=== PATIENT | female | born 1970 | race Caucasian/White ===

== ENCOUNTER 2020-02-24 23:07 | Inpatient (IN) | payer BC ==
[~2020-02-24] VITALS: Ht 170.2 cm; Wt 77.0 kg
[~2020-02-24 23:07] MED LIST: AMIT100T PO; ATOR20TA58 PO; BEVA25VI IV; CANA100T PO; EXEN2VIA SQ; INSU100I13 SQ; LISI10TA2 PO; SIMV20TA18 PO; SITA1TAB11 PO; ZOLP5TAB PO
--- NOTE | 2020-02-24 23:20 | PHYS DOC ---
Past History Past Medical History: Anemia, Anxiety, Diabetes, Hypertension, Renal Disease, Renal Failure, Other Past Medical History C dif colitis Past Surgical History: Tonsillectomy, Other Smoking: Non-smoker Alcohol Use: None Drug Use: None General Adult HPI: HPI: ".. I lost my taste and smell.. and I ve had constant nausea, diarrhea.. and some vomiting... I ve been sick since last tu... the diarrhea does not stop....".. I did get tested for COVID.. but will not have test until tomorrow..." Patient is a 49 year old female who presents with above hx and complaints na usea,vomiting, diarrhea, myalgia, arthralgia, fever, chills, malaise, loss of smell and taste. Patient today developed increased dyspnea. Pt. follows with Dr. Neville. Patient is also followed with Dr. Pappas in past. Patient also follows at nephrology for her chronic renal failure secondary to her diabetes.. Patient has had previous C. difficile exacerbations. Patient has diabetes has been fairly controlled. Pt. denies any history of intake of bad food. No specific ill contacts. No recent travel. Patient did get a flu vaccination this season. Review of Systems: Review of Systems: Constitutional: History fever or chills Eyes: Denies change in visual acuity HENT: Complaints of loss of smell and taste. Respiratory: Complains of shortness of breath Cardiovascular: Denies chest pain or edema GI: Complains of nausea, vomiting, and diarrhea : Denies dysuria Musculoskeletal: Denies back pain or joint pain Integument: Denies rash Neurologic: Denies headache, focal weakness or sensory changes Endocrine: Denies polyuria or polydipsia Lymphatic: Denies swollen glands Psychiatric: Denies depression or anxiety Family History: Family History: Noncontributory to presentation Current Medications: Current Meds: See nursing for home meds Allergies: Allergies: Allergies Coded Allergies Type Severity Reaction Last Updated Verified No Known Drug Allergies 07/01/13 No Physical Exam: PE: Constitutional: Moderate acute distress, non-toxic appearance. [] HENT: Normocephalic, atraumatic, bilateral external ears normal, oropharynx dry, no oral exudates, nose normal. [] Eyes: PERRLA, EOMI, conjunctiva normal, no discharge. [] Neck: Normal range of motion, no tenderness, supple, no stridor. [] Cardiovascular: Tachycardia heart rate regular rhythm, no murmur [] Lungs & Thorax: Bilateral breath sounds equal apex with scattered wheezes on auscultation [] Abdomen: Bowel sounds hyperactive, soft, generalized tenderness, no masses, no pulsatile masses. [] Skin: Warm, dry, no erythema, no rash. [] Back: No tenderness, no CVA tenderness. [] Extremities: Generalize muscle and joint tenderness, no cyanosis, no clubbing, ROM intact, no edema. No cording Neurologic: Alert and oriented X 3, normal motor function, normal sensory function, no focal deficits noted. [] Psychologic: Affect anxious, judgement normal, mood normal. [] EKG: EKG: My interpretation EKG shows a sinus rhythm at 89 bpm. Does have findings of a left port axis. There is some nonspecific anterior septal changes. But no findings of acute STEMI of contralateral changes. [] Radiology/Procedures: Radiology/Procedures: [] Heart Score: HEART Score for Chest Pain: HEART Score for Chest Pain Response (Comments) Value History Moderately Suspicious 1 ECG Nonspecific Repolarizatio 1 Age >45 - < 65 1 Risk Factors 1 or 2 Risk Factors 1 Total 4 Risk Factors: Risk Factors: DM, Current or recent (<one month) smoker, HTN, HLP, family history of CAD, obesity. Risk Scores: Score 0 - 3: 2.5% MACE over next 6 weeks - Discharge Home Score 4 - 6: 20.3% MACE over next 6 weeks - Admit for Clinical Observation Score 7 - 10: 72.7% MACE over next 6 weeks - Early Invasive Strategies Course & Med Decision Making: Course & Med Decision Making Pertinent Labs and Imaging studies reviewed. (See chart for details) Discussed presentation, testing and treatment plan with . Plan admit and hydrate pt. COVID precautions. Critical Care -90 min. Impression; 1. Viral syndrome-Covid suspect 2. Respiratory failure-hypoxia 3. Nausea vomiting and diarrhea-acute gastroenteritis 4. Anemia hemoglobin 10.5 5. Diabetes glucose 207 6. Dehydration 7. Elevated D-dimer 1.26 8. Hypomagnesium 1.7 9. Malnutrition albumin 2.7 10. Past history of C. difficile [] Dragon Disclaimer: Anne Disclaimer: This electronic medical record was generated, in whole or in part, using a voice recognition dictation system. Departure Departure: Referrals: CARA NEVILLE MD (PCP) SERG JOHNSON MD Feb 24, 2020 23:20
[2020-02-24] MEDS ORDERED: MORPHINE SULFATE 4 MG/ML DISP.SYRIN. IV ONE (23:55)
[2020-02-24] MEDS ORDERED: IV NORMAL SALINE 1,000ML 1,000 ML IV SCH (23:55)
[2020-02-24] MEDS ORDERED: ONDANSETRON PF 4 MG/2 ML VIAL. IVP ONE (23:55)
[2020-02-25] MEDS ORDERED: diphenhydrAMINE 50 MG/ML VIAL IVP PRN (01:00)
[2020-02-25] MEDS ORDERED: ONDANSETRON PF 4 MG/2 ML VIAL. IVP PRN (01:00)
[2020-02-25 01:18] LABS: BASO % 0 % (0-3); EOS % 0 % (0-3); HEMOGLOBIN 10.5 g/dL (12.0-15.5); LYMPH # 0.9 x10^3/uL (1.0-4.8); LYMPH % 15 % (24-48); MEAN CORPUSCULAR HEMOGLOBIN 28 pg (25-35); MEAN CORPUSCULAR HGB CONC 32 g/dL (31-37); MEAN CORPUSCULAR VOLUME 89 fL (79-100); MONO # 0.4 x10^3/uL (0.0-1.1); MONO % 7 % (0-9); NEUT # 4.8 x10^3uL (1.8-7.7); NEUT % 78 % (31-73); PLATELET COUNT 245 x10^3/uL (140-400); RED BLOOD COUNT 3.71 x10^6/uL (3.50-5.40); RED CELL DISTRIBUTION WIDTH 13.5 % (11.5-14.5); WHITE BLOOD COUNT 6.2 x10^3/uL (4.0-11.0)
[2020-02-25 01:31] LABS: CALCIUM 8.2 mg/dL (8.5-10.1); CREATININE 1.3 mg/dL (0.6-1.0); GFR 43.5; POTASSIUM 4.2 mmol/L (3.5-5.1)
[2020-02-25 01:43] LABS: ALBUMIN 2.7 g/dL (3.4-5.0); C REACTIVE PROTEIN 12.7 mg/L (0-3.3); DIRECT BILIRUBIN 0.2 mg/dL (0.0-0.2); MAGNESIUM 1.7 mg/dL (1.8-2.4); TOTAL BILIRUBIN 0.4 mg/dL (0.2-1.0); TOTAL PROTEIN 6.7 g/dL (6.4-8.2)
--- NOTE | 2020-02-25 01:46 | RAD ---
ACUTE ABDOMEN SERIES INDICATION: Reason: SUSPECT COVID, N/V/D, DYSPNEA / Spl. Instructions: / History: . COMPARISON STUDY: None. FINDINGS: Lungs: Normal lung volume. No pulmonary mass or consolidation. The tracheobronchial tree and hilar structures are normal. Pleura: No pleural effusion or pneumothorax. Heart and Mediastinum: The cardiomediastinal silhouette is normal. The great vessels of the thorax are normal. Abdomen: Nonobstructive bowel gas pattern. No free air. Atherosclerotic vascular calcifications. IMPRESSION: 1. No consolidation. 2. Nonobstructive bowel gas pattern. Electronically signed by: Sanjay Rockwell MD (02/25/2020 1:43 AM) [facility]
[2020-02-25] MEDS: metroNIDAZOLE 500 MG TABLET PO SCH ×3 (02:15→12:59)
[2020-02-25] MEDS ORDERED: MAGNESIUM SULFATE 2GM 50 ML IV ONE (03:15)
[2020-02-25 03:39] VITALS: BP 127/58
--- NOTE | 2020-02-25 04:00 | NUR ---
The patient, VIDAL DELGADO, 49 y/o, F admitted by CARA SYED MD, was given written information regarding hospital policies, unit procedures and contact persons. Valuables were checked and left in pt room
[2020-02-25 04:56] LABS: BGAS PH 7.28 (7.35-7.45)
[2020-02-25 05:15] VITALS: BP 132/63
[2020-02-25] MEDS ORDERED: TRAZ-125 PO (07:32)
[2020-02-25] MEDS ORDERED: LIRA0.6P2 SQ (07:32)
[2020-02-25] MEDS ORDERED: LISI40TA PO (07:32)
[2020-02-25] MEDS ORDERED: GLYB1.252 PO (07:32)
[2020-02-25] MEDS ORDERED: ROPI5TAB PO (07:32)
[2020-02-25] MEDS ORDERED: ESZO3TAB28 PO (07:32)
[2020-02-25] MEDS ORDERED: METF10007 PO (07:32)
[2020-02-25] MEDS: ALBUTEROL SULFATE 8GM INHALER. INH SCH ×4 (09:00→20:25)
[2020-02-25] MEDS ORDERED: CEPHALEXIN 250 MG CAPSULE PO SCH (09:00)
--- NOTE | 2020-02-25 09:28 | EKG ---
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
[2020-02-25] MEDS ORDERED: NON FORMULARY ITEM (Liraglutide (Victoza 3-Pak) 1.8 MG) SQ PRN (09:45)
[2020-02-25] MEDS: FAMOTIDINE 20 MG/2 ML VIAL IVP SCH ×2 (09:50→20:24)
[2020-02-25] MEDS: APIXABAN 2.5 MG TABLET PO SCH ×2 (09:50→20:24)
[2020-02-25] MEDS: LISINOPRIL 20 MG TABLET PO SCH (09:52)
[2020-02-25 10:43] LABS: BARBITURATES NEG (NEG); BENZODIAZEPINES NEG (NEG); CANNABINOIDS NEG (NEG); COCAINE NEG (NEG); METHADONE NEG (NEG); OPIATES POS (NEG); PHENCYCLIDINE NEG (NEG)
[2020-02-25 10:44] LABS: AMPHETAMINE/METHAMPHETAMINE NEG (NEG)
[2020-02-25 10:50] VITALS: BP 129/60
[2020-02-25 10:50] LABS: BILIRUBIN,URINE NEG (NEG); CLARITY,URINE HAZY; COLOR,URINE YELLOW; GLUCOSE,URINE 500 mg/dL (NEG)
[2020-02-25 10:51] LABS: AMORPHOUS SEDIMENT,UR PRESENT /HPF; BACTERIA,URINE FEW /HPF (0-FEW); HYALINE CASTS, URINE MOD /HPF; NITRITE,URINE NEG (NEG); SQUAMOUS EPITHELIAL CELL,UR OCC /LPF; UROBILINOGEN,URINE 0.2 mg/dL (0.2 mg/dL)
[2020-02-25 10:52] LABS: GRANULAR CASTS,URINE FEW /HPF
[2020-02-25] MEDS: glyBURIDE 1.25 MG TABLET PO SCH (12:19)
[2020-02-25] MEDS: IV RINGERS SOLUTION,LACTATED 1,000 ML IV SCH ×2 (12:21→20:00)
[2020-02-25] MEDS: ACETAMINOPHEN 325 MG TABLET PO PRN ×2 (12:59→21:36)
[2020-02-25 14:38] VITALS: BP 132/63
[2020-02-25 14:53] LABS: CALCIUM 7.2 mg/dL (8.5-10.1); GFR 58.9; POTASSIUM 3.9 mmol/L (3.5-5.1)
[2020-02-25] MEDS ORDERED: IOHEXOL 350 MG/ML 100 ML VIAL. IV ONE (15:00)
[2020-02-25] MEDS ORDERED: CONTRAST GIVEN. MC PRN (15:15)
[2020-02-25] MEDS: VANCOMYCIN 125 MG/2.5 ML ORAL SOLUTION. PO SCH ×3 (15:30→20:24)
--- NOTE | 2020-02-25 16:53 | RAD ---
CTA scan of the Chest with Contrast (Pulmonary Embolism protocol) 02/25/2020 Clinical History: Shortness of breath. Positive d-dimer. Technique: After the intravenous administration of 100 cc of Omnipaque 300, contiguous, 0.625 mm axial sections were obtained through the chest. 2 mm axial and 3D MIP coronal and sagittal reconstructed images were obtained. One or more of the following individualized dose reduction techniques were utilized for this study: 1. Automated exposure control. 2. Adjustment of the mA and/or kV according to patient size. 3. Use of iterative reconstruction technique. Findings: Comparison study is dated 05/02/2015. No filling defect is seen within the major branches of either pulmonary artery. There is no CT evidence of pulmonary embolism. The heart is mildly enlarged. The thoracic aorta tapers normally. Patchy focal infiltrates are seen involving both upper lobes, left greater than right along with both lower lobes. No pneumothorax or pleural effusion is seen. Impression: There is no CT evidence of pulmonary embolism. CT scan of the abdomen and pelvis with contrast 02/25/2020 CLINICAL HISTORY: Abdominal pain. Weakness. TECHNIQUE: After the intravenous administration of 100 cc of Omnipaque 300, contiguous, 5 mm axial sections were obtained through the abdomen and pelvis. One or more of the following individualized dose reduction techniques were utilized for this study: 1. Automated exposure control. 2. Adjustment of the mA and/or kV according to patient size. 3. Use of iterative reconstruction technique. FINDINGS: Images through the lung bases demonstrate patchy areas of infiltrate involving both lower lobes. There is mild cardiomegaly. The liver, spleen, pancreas, and adrenal glands are within normal limits. 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 The inferior aspect of the right kidney extends into the right pelvis. A 5 mm rounded low-attenuation lesion is seen involving the midpole of the left kidney. This likely represents a cyst. No further imaging evaluation is seen. Nonobstructing calculi are seen involving both kidneys which measure 1 to 2 mm in size. Atherosclerotic calcification of the abdominal aorta is seen. The abdominal aorta tapers normally. No free fluid or free air is seen within the abdomen. The gallbladder is well-distended. There is no evidence of bowel obstruction. Images through the pelvis demonstrate the urinary bladder distended with urine. Calcifications are seen within the pelvis consistent with phleboliths. No free fluid is seen. Minimal S-shaped curvature of the thoracolumbar spine is seen. Degenerative changes are seen involving the lower thoracic and throughout the lumbar spine along with both hips. IMPRESSION: No acute abnormality is seen. Electronically signed by: Jaylen Stinson MD (02/25/2020 4:49 PM) [id number]
[2020-02-25] MEDS ORDERED: METFORMIN HCL 2000 MG PO SCH (17:00)
[2020-02-25] MEDS ORDERED: ZOLPIDEM 5 MG TABLET. PO PRN ×2 (18:30→18:45)
[2020-02-25] MEDS ORDERED: AZITHROMYCIN 250 MG TABLET. PO ONE (18:30)
[2020-02-25] MEDS ORDERED: MORPHINE SULFATE 2 MG/ML DISP.SYRIN. IM ONE (18:45)
[2020-02-25] MEDS ORDERED: ONDANSETRON ODT 4 MG TAB.RAPDIS PO ONE (18:45)
[2020-02-25] MEDS: MORPHINE SULFATE 2 MG/ML DISP.SYRIN. IV PRN (19:45)
[2020-02-25 20:13] VITALS: BP 131/60
[2020-02-25] MEDS: traZODone 100 MG TABLET. PO SCH (20:24)
--- NOTE | 2020-02-25 21:54 | HP ---
ADMIT DATE: 02/25/2020 HISTORY OF PRESENT ILLNESS: A 49-year-old female came in through the Emergency Room. The patient was having problems with diarrhea as well as nausea and vomiting. The diarrhea did not stop at that time. The patient is having multiple complaints of nausea, vomiting, diarrhea, myalgias, arthralgias, fever, chills, malaise, loss of smell and taste. The patient developed increased dyspnea. The patient also has a history of diabetes. Her C. difficile did come back positive. Her COVID-19 is still pending. The patient is spiking temperatures. CT scan demonstrated possible infiltrative process in both the upper lobes of her lungs. Apparently, the patient in the past has had previous C. difficile exacerbations. The patient with multiplicity of medical problems here was admitted to the hospital for further evaluation and treatment, IV fluids, IV antibiotics as well as oral vancomycin for the C. difficile. PAST MEDICAL HISTORY: Includes previous history of C. difficile, tonsillectomy, GERD, hysterectomy, renal disease, endocrine disorders, type 2 diabetes, depression, anemia, pneumococcal vaccination up-to-date. SURGERIES: Lymph node removal, right foot surgery, C. difficile, apparently a few times. FAMILY HISTORY: Positive for diabetes, heart disease, stroke and some form of cancer. ALLERGIES: None known. HOME MEDICATIONS: Reconciled including lisinopril 40, trazodone 100, Lunesta 3, Requip 5, metformin 1000 b.i.d., Victoza 0.6 mg, glyburide 1.25. SOCIAL HISTORY: The patient denies any smoking, alcohol or drug use. Full code. REVIEW OF SYSTEMS: As stated above, some dyspnea. No headaches, visual changes, blurred vision, nausea, vomiting, diarrhea, diffuse abdominal discomfort. PHYSICAL EXAMINATION: GENERAL: The patient on exam is a pleasant white female looking somewhat pale. VITAL SIGNS: Blood pressure at that time 127/54, respiratory rate 18, pulse 106, afebrile at the time, she is on 2 liters at 95%. HEENT: The patient's head is atraumatic, normocephalic. Eyes: PERRLA without jaundice. The mouth and throat were normal. NECK: Supple, without JVD, carotid bruits, no thyromegaly. LUNGS: The patient's lungs were diminished, but basically clear. CARDIOVASCULAR: Regular sinus rhythm. ABDOMEN: Soft, diffuse tenderness in the right mid quadrant area, but no rebounding or guarding. Positive bowel sounds, no hepatosplenomegaly. EXTREMITIES: No clubbing, cyanosis, nor edema. NEUROLOGIC: The patient is alert and oriented x 3. LABORATORY DATA: The patient's white count 6, hemoglobin 10 and hematocrit 33. The patient's chemistry, 134, 3.9. Her BUN and creatinine have come down from 19 and 1.3, to 17 and 1 with a GFR of approximately 59, blood sugar 176. Calcium was low, but that may be pseudo hypocalcemia as her albumin was low at 2.7. C-reactive protein 12.7. BNP 760. Serology positive for C. diff. IMPRESSION: Sepsis, dyspnea, pneumonia of unspecified etiology, possible COVID, type 2 diabetes, Clostridium difficile colitis, recurrent, chronic kidney disease stage 3, respiratory acidosis. The patient will be placed on Rocephin and azithromycin for her pneumonia. Oral vancomycin for her C. difficile, will need to be balanced against the situation here, apparently she was given Septra-DS for bladder infection. She reports that from , her urine grew out Klebsiella pneumoniae for her UTI; however, sensitivities are still pending. PLAN: The patient will be monitored carefully, fluids, oxygen therapy with azithromycin. We will wait for C. difficile before adding any steroids with her history of diabetes. CARA SYED MD DR: EMI/jonah JOB#: [id number] / [id number]
[2020-02-25 22:40] VITALS: BP 120/60
[2020-02-26 06:27] LABS: BASO % 0 % (0-3); EOS # 0.1 x10^3/uL (0.0-0.7); EOS % 1 % (0-3); HEMATOCRIT 26.2 % (36.0-47.0); HEMOGLOBIN 8.4 g/dL (12.0-15.5); LYMPH # 1.1 x10^3/uL (1.0-4.8); LYMPH % 19 % (24-48); MEAN CORPUSCULAR HEMOGLOBIN 28 pg (25-35); MEAN CORPUSCULAR HGB CONC 32 g/dL (31-37); MEAN CORPUSCULAR VOLUME 89 fL (79-100); MONO # 0.6 x10^3/uL (0.0-1.1); MONO % 9 % (0-9); NEUT # 4.2 x10^3uL (1.8-7.7); NEUT % 71 % (31-73); PLATELET COUNT 221 x10^3/uL (140-400); RED BLOOD COUNT 2.95 x10^6/uL (3.50-5.40); RED CELL DISTRIBUTION WIDTH 13.3 % (11.5-14.5); WHITE BLOOD COUNT 5.9 x10^3/uL (4.0-11.0)
[2020-02-26 06:32] LABS: CALCIUM 7.3 mg/dL (8.5-10.1); CREATININE 1.1 mg/dL (0.6-1.0); GFR 52.8
[2020-02-26 06:40] VITALS: BP 135/62
[2020-02-26] MEDS: ONDANSETRON ODT 4 MG TAB.RAPDIS PO PRN (06:47)
[2020-02-26] MEDS: ACETAMINOPHEN 325 MG TABLET PO PRN ×2 (06:47→20:30)
[2020-02-26] MEDS: IV RINGERS SOLUTION,LACTATED 1,000 ML IV SCH ×2 (07:42→18:12)
[2020-02-26] MEDS: APIXABAN 2.5 MG TABLET PO SCH ×2 (07:44→20:30)
[2020-02-26] MEDS: LISINOPRIL 20 MG TABLET PO SCH (07:44)
[2020-02-26] MEDS: VANCOMYCIN 125 MG/2.5 ML ORAL SOLUTION. PO SCH ×4 (07:44→20:30)
[2020-02-26] MEDS: ALBUTEROL SULFATE 8GM INHALER. INH SCH ×4 (07:45→20:30)
[2020-02-26] MEDS: FAMOTIDINE 20 MG/2 ML VIAL IVP SCH ×2 (07:45→20:30)
[2020-02-26] MEDS: AZITHROMYCIN 250 MG TABLET. PO SCH (07:48)
[2020-02-26] MEDS: rOPINIRole 2 MG TABLET. PO SCH (07:49)
[2020-02-26] MEDS: MORPHINE SULFATE 2 MG/ML DISP.SYRIN. IV PRN (08:17)
[2020-02-26] MEDS ORDERED: LACTOBACILLUS RHAMNOSUS GG 1 CAPSULE. PO SCH (09:00)
[2020-02-26] MEDS ORDERED: PROCHLORPERAZINE 10 MG/2 ML VIAL. IM ONE (10:00)
[2020-02-26] MEDS: HYDROcodone/CHLORPHEN POLIS 5 ML SUS.ER.12H PO ONE ×2 (10:22→12:42)
[2020-02-26] MEDS ORDERED: PROCHLORPERAZINE 10 MG/2 ML VIAL. IV ONE (10:30)
--- NOTE | 2020-02-26 10:30 | NUR ---
Patient is nauseous and vomiting, requests that I hold oral medications until she has stopped vomiting. Will hold medications at this time.
[2020-02-26 11:05] VITALS: BP 132/63
[2020-02-26] MEDS: glyBURIDE 1.25 MG TABLET PO SCH (12:42)
--- NOTE | 2020-02-26 15:07 | NUR ---
Patient SpO2 is 86% on room air. patient placed on 3L O2 via nasal canula, SpO2 is 93%. Per MD instructions, pharmacy notified to initiate Remdesivir treatment. Pharmacy states that approval is needed from Dr. Jane. Will continue to monitor.
[2020-02-26 15:20] VITALS: BP 130/62
[2020-02-26] MEDS ORDERED: REMDESIVIR LOAD in IV NORMAL SALINE 250ML TV IV ONE (16:30)
[2020-02-26] MEDS: DEXAMETHASONE SOD PHOS 4 MG/ML VIAL. IVP SCH (18:12)
[2020-02-26] MEDS: ZOLPIDEM 5 MG TABLET. PO PRN (20:30)
[2020-02-26] MEDS: traZODone 100 MG TABLET. PO SCH (20:30)
[2020-02-26] MEDS: CHOLECALCIFEROL (VITAMIN D3) 1,000 UNIT TABLET PO SCH (20:30)
[2020-02-26] MEDS: LACTOBACILLUS RHAMNOSUS GG 1 CAPSULE. PO SCH (20:30)
[2020-02-26 20:56] VITALS: BP 178/75
[2020-02-26] MEDS ORDERED: hydrALAZINE 20 MG/ML VIAL. IV PRN (21:30)
[2020-02-27] MEDS: DEXAMETHASONE SOD PHOS 4 MG/ML VIAL. IVP SCH ×6 (00:15→23:35)
[2020-02-27] MEDS: IV RINGERS SOLUTION,LACTATED 1,000 ML IV SCH ×3 (02:00→23:37)
[2020-02-27 05:38] LABS: BASO % 0 % (0-3); EOS % 0 % (0-3); HEMATOCRIT 31.8 % (36.0-47.0); LYMPH # 0.5 x10^3/uL (1.0-4.8); LYMPH % 13 % (24-48); MEAN CORPUSCULAR HEMOGLOBIN 28 pg (25-35); MEAN CORPUSCULAR HGB CONC 31 g/dL (31-37); MEAN CORPUSCULAR VOLUME 89 fL (79-100); MONO # 0.1 x10^3/uL (0.0-1.1); MONO % 3 % (0-9); NEUT # 3.4 x10^3uL (1.8-7.7); NEUT % 84 % (31-73); PLATELET COUNT 286 x10^3/uL (140-400); RED BLOOD COUNT 3.56 x10^6/uL (3.50-5.40); RED CELL DISTRIBUTION WIDTH 13.4 % (11.5-14.5); WHITE BLOOD COUNT 4.1 x10^3/uL (4.0-11.0)
[2020-02-27 05:44] LABS: CLARITY,URINE CLEAR; COLOR,URINE YELLOW
[2020-02-27 05:45] LABS: BACTERIA,URINE 0 /HPF (0-FEW); BILIRUBIN,URINE NEG (NEG); GLUCOSE,URINE >=1000 mg/dL (NEG); NITRITE,URINE NEG (NEG); RBC,URINE OCC /HPF (0-2); SQUAMOUS EPITHELIAL CELL,UR MOD /LPF; UROBILINOGEN,URINE 0.2 mg/dL (0.2 mg/dL); WBC,URINE OCC /HPF (0-4)
[2020-02-27 05:48] LABS: CALCIUM 7.8 mg/dL (8.5-10.1); CREATININE 1.1 mg/dL (0.6-1.0); GFR 52.8; POTASSIUM 4.4 mmol/L (3.5-5.1)
--- NOTE | 2020-02-27 06:12 | NUR ---
Pt. sitting up at beside when approached for assessment. VS obtained. Pt was stating at 99% on 3L. O2 was then pumped down to 2L. HS meds tolerated w/o difficulty. Pt was educated on how to administer inhaler to self. Pt complied w/ education and demonstrated an understanding. Pt was then visited later in the night to checking toleration of decrease in O2. Pt was stating at 98% on 2L w/o difficulty. Pt stated that "she didn't feel she needed the oxygen." Pt was then taken off O2. After sitting w/ the pt for 30 min. pt was stating above 95% w/o symptoms. Pt was told to call for help if she felt SOA. Call light in reach and will continue to monitor.
[2020-02-27 06:18] VITALS: BP 195/74
[2020-02-27] MEDS: ALBUTEROL SULFATE 8GM INHALER. INH SCH ×4 (10:10→20:26)
[2020-02-27] MEDS: CHOLECALCIFEROL (VITAMIN D3) 1,000 UNIT TABLET PO SCH (10:10)
[2020-02-27] MEDS: FAMOTIDINE 20 MG/2 ML VIAL IVP SCH ×2 (10:11→20:24)
[2020-02-27] MEDS: LACTOBACILLUS RHAMNOSUS GG 1 CAPSULE. PO SCH ×2 (10:11→20:25)
[2020-02-27] MEDS: AZITHROMYCIN 250 MG TABLET. PO SCH (10:11)
[2020-02-27] MEDS: APIXABAN 2.5 MG TABLET PO SCH ×2 (10:11→20:25)
[2020-02-27] MEDS: rOPINIRole 2 MG TABLET. PO SCH (10:11)
[2020-02-27] MEDS: LISINOPRIL 20 MG TABLET PO SCH (10:13)
[2020-02-27] MEDS: VANCOMYCIN 125 MG/2.5 ML ORAL SOLUTION. PO SCH ×4 (10:14→20:24)
[2020-02-27 10:33] VITALS: BP 180/74
[2020-02-27] MEDS: glyBURIDE 1.25 MG TABLET PO SCH (11:53)
[2020-02-27] MEDS: PROCHLORPERAZINE 10 MG/2 ML VIAL. IV PRN (12:09)
[2020-02-27] MEDS ORDERED: DEXTROSE 50% 25 GM / 50ML DISP.SYRIN. IV PRN (12:15)
[2020-02-27] MEDS: DICYCLOMINE HCL 10 MG CAPSULE PO SCH ×2 (13:51→20:25)
[2020-02-27 14:38] VITALS: BP 144/64
[2020-02-27] MEDS: INSULIN LISPRO 300 UNITS/3 ML VIAL. SQ SCH (16:43)
[2020-02-27] MEDS: REMDESIVIR 100mg in NORMAL SALINE 250ML X 4 DAYS IV SCH (17:38)
--- NOTE | 2020-02-27 18:57 | PN ---
DATE: SUBJECTIVE: A 49-year-old female came in with viral syndrome, multiple medical problems including respiratory distress. She also had a Klebsiella pneumoniae urinary tract infection. The patient had C. difficile colitis as well. Multiple medical issues are going on with this individual. The patient's COVID-19 test came back positive today. She was started on a protocol of Decadron, azithromycin as well as continuing her oral vancomycin for the C. difficile. A repeat urine will be performed. She had been on Rocephin and received a couple of doses, which may have been enough to clean out the UTI, at the same time, hopefully allow her bowel to re-populate normal lucie to cut down on the diarrhea. The patient otherwise has got an up and down day. Her temperature has been spiking, although this evening came down from a high of a 103 and is now down to 98 even. OBJECTIVE: VITAL SIGNS: Blood pressure elevated at 170/75 (when seen), respiratory 18, pulse 73. She is on 3 liters. Without it, she desaturated to about 86%. GENERAL: The patient otherwise is alert and oriented. LUNGS: Diminished. Poor movement of air, particularly in the bases. CVR: Regular sinus rhythm, S1, S2. ABDOMEN: Soft, nontender. No rebounding or guarding. EXTREMITIES: No clubbing, cyanosis, nor edema. The patient's number of stools has decreased somewhat and we will continue on the vancomycin, try to keep her off other antibiotics except the azithromycin for COVID-19 as her scans did show infiltrative process in the lungs, probably consistent with this COVID infection. LABORATORY DATA: The patient's hemoglobin 8.4 and 26, white count of 6. The patient's sodium and potassium 132, 4, 1.1 and 52. Iron extremely low at 17, maybe give infusion of iron rather than oral since she is having so many digestive problems as we dictate on this. IMPRESSION: Sepsis, COVID-19 pneumonia, respiratory failure, essential hypertension, iron-deficiency anemia, C. difficile colitis, urinary tract infection with Klebsiella pneumoniae, severe protein malnutrition, chronic kidney disease stage 3. PLAN: We will continue her on azithromycin, oral vancomycin. Repeat urine culture. Consider iron infusion, Decadron. She is also a diabetic and we are monitoring her sugars and keeping them in relatively good control there, very complicated patient with multiple issues simultaneously. CARA SYED MD DR: EMI/jonah JOB#: [id number] / [id number]
[2020-02-27 19:41] VITALS: BP 160/70
[2020-02-27] MEDS: MORPHINE SULFATE 2 MG/ML DISP.SYRIN. IV PRN (20:25)
[2020-02-27] MEDS: traZODone 100 MG TABLET. PO SCH (20:25)
[2020-02-27] MEDS: ZOLPIDEM 5 MG TABLET. PO PRN (20:26)
[2020-02-27] MEDS ORDERED: INSULIN GLARGINE SYRINGE. SQ SCH (21:00)
[2020-02-27 22:15] VITALS: BP 177/72
[2020-02-27] MEDS: HYDROcodone/CHLORPHEN POLIS 5 ML SUS.ER.12H PO PRN (23:34)
[2020-02-28 05:20] VITALS: BP 174/74
[2020-02-28] MEDS: DEXAMETHASONE SOD PHOS 4 MG/ML VIAL. IVP SCH ×3 (06:20→21:03)
[2020-02-28] MEDS: MORPHINE SULFATE 2 MG/ML DISP.SYRIN. IV PRN ×2 (06:35→19:32)
[2020-02-28 06:53] LABS: ALBUMIN 2.5 g/dL (3.4-5.0); ALBUMIN/GLOBULIN RATIO 0.7 (1.0-1.7); CALCIUM 8.1 mg/dL (8.5-10.1); CREATININE 1.1 mg/dL (0.6-1.0); GFR 52.8; POTASSIUM 4.2 mmol/L (3.5-5.1); TOTAL BILIRUBIN 0.2 mg/dL (0.2-1.0); TOTAL PROTEIN 6.3 g/dL (6.4-8.2)
[2020-02-28] MEDS: IV RINGERS SOLUTION,LACTATED 1,000 ML IV SCH ×3 (08:00→18:12)
[2020-02-28] MEDS: INSULIN GLARGINE SYRINGE. SQ SCH ×3 (08:15→21:00)
[2020-02-28] MEDS: rOPINIRole 2 MG TABLET. PO SCH (09:00)
[2020-02-28] MEDS ORDERED: CALCIUM CARBONATE 500 MG TAB.CHEW PO PRN (09:15)
[2020-02-28] MEDS ORDERED: PANTOPRAZOLE 40 MG TABLET. PO ONE (09:15)
[2020-02-28] MEDS: INSULIN LISPRO 300 UNITS/3 ML VIAL. SQ SCH ×3 (10:30→18:07)
[2020-02-28] MEDS: VANCOMYCIN 125 MG/2.5 ML ORAL SOLUTION. PO SCH ×4 (10:31→21:00)
[2020-02-28] MEDS: CHOLECALCIFEROL (VITAMIN D3) 1,000 UNIT TABLET PO SCH (10:32)
[2020-02-28] MEDS: LISINOPRIL 20 MG TABLET PO SCH ×2 (10:32→11:23)
[2020-02-28] MEDS: DICYCLOMINE HCL 10 MG CAPSULE PO SCH ×3 (10:32→21:00)
[2020-02-28] MEDS: LACTOBACILLUS RHAMNOSUS GG 1 CAPSULE. PO SCH ×2 (10:33→21:02)
[2020-02-28] MEDS: APIXABAN 2.5 MG TABLET PO SCH ×2 (10:33→21:00)
[2020-02-28] MEDS: AZITHROMYCIN 250 MG TABLET. PO SCH (10:36)
[2020-02-28] MEDS: ALBUTEROL SULFATE 8GM INHALER. INH SCH ×4 (10:41→21:00)
[2020-02-28 11:10] VITALS: BP 184/81
--- NOTE | 2020-02-28 11:24 | NUR ---
Patient refused lisinopril. She states she was vomiting yesterday most of the day and continues to have a stomach ache. Dr Neville changed some medications around. Patient stated that she feels that the Lisinopril was making her nauseated and causing her to vomit per her conversation with her doctor.
--- NOTE | 2020-02-28 12:59 | NUR ---
ordering a midline for pt access. pt currently on 2 IV medications that can be given at different times, Sterile kit, drape used for sterile procedure, injection of 1ml lidocaine used, pt tolerated well. 10cm midline inserted using ultrasound and mod seldinger tech. line inserted to basilic vein, with good blood return. No complications
[2020-02-28] MEDS: glyBURIDE 1.25 MG TABLET PO SCH (13:51)
[2020-02-28] MEDS: PROCHLORPERAZINE 10 MG/2 ML VIAL. IV PRN (14:34)
--- NOTE | 2020-02-28 14:35 | NUR ---
Patient reports Nausea. PRN compazine given IV per order.
[2020-02-28 15:25] VITALS: BP 168/77
[2020-02-28] MEDS: REMDESIVIR 100mg in NORMAL SALINE 250ML X 4 DAYS IV SCH (18:10)
--- NOTE | 2020-02-28 19:16 | PN ---
DATE: SUBJECTIVE: A 49-year-old female in with multiple medical problems including COVID-19 pneumonia, C. difficile colitis, urinary tract infection of Klebsiella pneumoniae, type 2 diabetes. This morning, she was feeling better, although by afternoon she was not feeling as good. Still running low-grade temperature of 99.7, blood pressure 160/70, respiratory rate 20, pulse 80, afebrile. The patient is still having multiple loose stools up to 5 with some cramping. We will give her some Bentyl for that. OBJECTIVE: VITAL SIGNS: Blood pressure 160/70, respiratory rate 20, pulse 80, afebrile. GENERAL: The patient is alert and oriented. LUNGS: Diminished throughout, poor movement of air. ABDOMEN: Soft, nontender. EXTREMITIES: No clubbing, cyanosis, nor edema. IMPRESSION: COVID-19 pneumonia, C. difficile colitis, diarrhea as such, essential hypertension; type 2 diabetes, poorly controlled at the present time. PLAN: We will go ahead and start her on some Cardizem for her high blood pressure. We will decrease on her Decadron and increase insulin sliding scale as well as giving her Lantus twice a day to help keep the sugar down as a result of those steroids. CARA SYED MD DR: EMI/jonah JOB#: [id number] / [id number]
[2020-02-28 20:23] VITALS: BP 128/63
[2020-02-28] MEDS: traZODone 100 MG TABLET. PO SCH (21:00)
[2020-02-28] MEDS: FAMOTIDINE 20 MG TABLET PO SCH (21:00)
[2020-02-28] MEDS: HYDROcodone/CHLORPHEN POLIS 5 ML SUS.ER.12H PO PRN (21:00)
[2020-02-28 22:45] VITALS: BP_SYST 119; BP_DIAS 58; BP_DIAS 63
[2020-02-28] MEDS: TEMAZEPAM 7.5 MG CAPSULE PO PRN (23:15)
[2020-02-29] MEDS: DEXAMETHASONE SOD PHOS 4 MG/ML VIAL. IVP SCH ×3 (04:33→21:49)
[2020-02-29] MEDS: IV RINGERS SOLUTION,LACTATED 1,000 ML IV SCH ×2 (04:33→14:00)
[2020-02-29 04:53] VITALS: BP 151/69
[2020-02-29 05:35] LABS: ALBUMIN 2.3 g/dL (3.4-5.0); ALBUMIN/GLOBULIN RATIO 0.7 (1.0-1.7); CALCIUM 7.7 mg/dL (8.5-10.1); GFR 58.9; POTASSIUM 3.9 mmol/L (3.5-5.1); TOTAL BILIRUBIN 0.1 mg/dL (0.2-1.0); TOTAL PROTEIN 5.6 g/dL (6.4-8.2)
[2020-02-29] MEDS: VANCOMYCIN 125 MG/2.5 ML ORAL SOLUTION. PO SCH ×4 (08:15→21:49)
[2020-02-29] MEDS: INSULIN LISPRO 300 UNITS/3 ML VIAL. SQ SCH ×3 (08:17→17:08)
[2020-02-29] MEDS: INSULIN GLARGINE SYRINGE. SQ SCH ×2 (08:17→21:00)
[2020-02-29] MEDS: PANTOPRAZOLE 40 MG TABLET. PO SCH (08:19)
[2020-02-29] MEDS: ALBUTEROL SULFATE 8GM INHALER. INH SCH ×4 (08:19→21:00)
[2020-02-29] MEDS: APIXABAN 2.5 MG TABLET PO SCH (08:19)
[2020-02-29] MEDS: DICYCLOMINE HCL 10 MG CAPSULE PO SCH ×3 (08:20→21:49)
[2020-02-29] MEDS: CHOLECALCIFEROL (VITAMIN D3) 1,000 UNIT TABLET PO SCH (08:20)
[2020-02-29] MEDS: LISINOPRIL 20 MG TABLET PO SCH (08:20)
[2020-02-29] MEDS: LACTOBACILLUS RHAMNOSUS GG 1 CAPSULE. PO SCH ×2 (08:20→21:54)
[2020-02-29] MEDS: AZITHROMYCIN 250 MG TABLET. PO SCH (08:21)
[2020-02-29] MEDS: rOPINIRole 2 MG TABLET. PO SCH (08:22)
[2020-02-29] MEDS: MORPHINE SULFATE 2 MG/ML DISP.SYRIN. IV PRN ×2 (08:51→22:30)
[2020-02-29] MEDS: ONDANSETRON ODT 4 MG TAB.RAPDIS PO PRN (08:51)
[2020-02-29 10:57] VITALS: BP 152/64
[2020-02-29] MEDS: glyBURIDE 1.25 MG TABLET PO SCH (11:59)
--- NOTE | 2020-02-29 16:50 | PN ---
DATE: SUBJECTIVE: The patient is resting fairly comfortably, not feeling as good as she did yesterday, still having problems with her diarrhea, although she says it is sort of slowing up. The patient's urine grew out no growth, so we took her off all her other antibiotics that were not necessary at this time and the patient still has some nausea. Blood pressure went up to 180/81, respiratory rate 20, pulse 72, afebrile. She is still on remdesivir for her COVID-19. PHYSICAL EXAMINATION: GENERAL: Otherwise, the patient is alert and oriented, looking uncomfortable. LUNGS: Diminished throughout, but basically clear. CARDIOVASCULAR: Regular sinus rhythm. ABDOMEN: Protuberant, soft, diffuse tenderness. No rebounding or guarding. Positive bowel sounds. No hepatosplenomegaly was noted. The patient is to continue on her remdesivir and make further evaluation on her on that. She is on the oral vancomycin. IMPRESSION: Sepsis, COVID-19 pneumonia, respiratory failure, essential hypertension, iron deficiency anemia, C. difficile colitis, urinary tract infection with Klebsiella pneumoniae, which is clear with severe protein malnutrition, chronic kidney disease stage 3A. CARA SYED MD DR: EMI/jonah JOB#: [id number] / [id number]
[2020-02-29] MEDS: REMDESIVIR 100mg in NORMAL SALINE 250ML X 4 DAYS IV SCH (18:03)
[2020-02-29 19:46] VITALS: BP 162/71
[2020-02-29] MEDS ORDERED: ENOXAPARIN 40 MG/0.4 ML SYRINGE. SQ SCH (21:00)
[2020-02-29] MEDS ORDERED: INSULIN LISPRO 300 UNITS/3 ML VIAL. SQ SCH (21:30)
[2020-02-29] MEDS: FAMOTIDINE 20 MG TABLET PO SCH (21:50)
[2020-02-29] MEDS: traZODone 100 MG TABLET. PO SCH (21:54)
[2020-02-29] MEDS ORDERED: INSULIN LISPRO 300 UNITS/3 ML VIAL. SQ ONE (22:00)
[2020-02-29] MEDS: TEMAZEPAM 7.5 MG CAPSULE PO PRN (22:29)
[2020-03-01] MEDS: IV RINGERS SOLUTION,LACTATED 1,000 ML IV SCH ×2 (06:32→09:26)
[2020-03-01] MEDS: DEXAMETHASONE SOD PHOS 4 MG/ML VIAL. IVP SCH (06:32)
[2020-03-01] MEDS: INSULIN LISPRO 300 UNITS/3 ML VIAL. SQ SCH ×2 (08:00→12:35)
[2020-03-01] MEDS: rOPINIRole 2 MG TABLET. PO SCH (09:00)
[2020-03-01] MEDS: ALBUTEROL SULFATE 8GM INHALER. INH SCH ×2 (09:00→12:32)
[2020-03-01] MEDS: INSULIN GLARGINE SYRINGE. SQ SCH (09:00)
[2020-03-01] MEDS: LACTOBACILLUS RHAMNOSUS GG 1 CAPSULE. PO SCH (09:21)
[2020-03-01] MEDS: DICYCLOMINE HCL 10 MG CAPSULE PO SCH (09:21)
[2020-03-01] MEDS: PANTOPRAZOLE 40 MG TABLET. PO SCH (09:21)
[2020-03-01] MEDS: LISINOPRIL 20 MG TABLET PO SCH (09:21)
[2020-03-01] MEDS: AZITHROMYCIN 250 MG TABLET. PO SCH (09:21)
[2020-03-01] MEDS: CHOLECALCIFEROL (VITAMIN D3) 1,000 UNIT TABLET PO SCH (09:21)
[2020-03-01] MEDS: VANCOMYCIN 125 MG/2.5 ML ORAL SOLUTION. PO SCH ×2 (09:22→12:34)
[2020-03-01] MEDS: MORPHINE SULFATE 2 MG/ML DISP.SYRIN. IV PRN (09:40)
[2020-03-01] MEDS: ONDANSETRON ODT 4 MG TAB.RAPDIS PO PRN (09:40)
[2020-03-01 11:03] VITALS: BP 164/77
[2020-03-01] MEDS: glyBURIDE 1.25 MG TABLET PO SCH (12:32)
[2020-03-01] MEDS: REMDESIVIR 100mg in NORMAL SALINE 250ML X 4 DAYS IV SCH (12:36)
[2020-03-01] MEDS ORDERED: DEXA4VIA37 PO (12:49)
[2020-03-01] MEDS ORDERED: ROPI5TAB PO (12:49)
[2020-03-01] MEDS ORDERED: INSU100V8 SQ (12:49)
[2020-03-01] MEDS ORDERED: FAMO20TA5 PO (12:49)
[2020-03-01] MEDS ORDERED: ONDA4TAB12 PO (12:49)
[2020-03-01] MEDS ORDERED: ALBU8HFA2 INH (12:49)
[2020-03-01] MEDS ORDERED: DILT240C33 PO (12:49)
[2020-03-01] MEDS ORDERED: DICY10CA3 PO (12:49)
[2020-03-01] MEDS ORDERED: AZIT250T6 PO (12:49)
[2020-03-01] MEDS ORDERED: INSU100I11 SQ (12:49)
[2020-03-01] MEDS ORDERED: PANT40TA6 PO (12:49)
[2020-03-01] MEDS ORDERED: CHOL10003 PO (12:49)
--- NOTE | 2020-03-01 13:20 | NUR ---
PATIENT IS DISCHARGED HOME WITH SELF CARE. PATIENT IS GIVEN ALL DISCHARGE AND FOLLOW UP INSTRUCTIONS. PATIENT IS STABLE AT TIME OF DISCHARGE. DR SYED WANTS MIDLINE LEFT IN. PATIENT TO FOLLOW UP WITH DR SYED NEXT WEEK.
[2020-03-01 14:11] LABS: ALBUMIN 2.7 g/dL (3.4-5.0); ALBUMIN/GLOBULIN RATIO 0.7 (1.0-1.7); CALCIUM 8.3 mg/dL (8.5-10.1); GFR 58.9; POTASSIUM 3.8 mmol/L (3.5-5.1); TOTAL BILIRUBIN 0.2 mg/dL (0.2-1.0); TOTAL PROTEIN 6.5 g/dL (6.4-8.2)
--- NOTE | 2020-03-01 20:25 | PN ---
DATE: SUBJECTIVE: A 49-year-old female came in with COVID-19 pneumonia. She has been doing fairly well. She has had also C. difficile urinary tract infection. The patient seems to be doing a little better this morning. OBJECTIVE: VITAL SIGNS: Blood pressure 162/70, respiratory rate 20, pulse 66, afebrile, and 98% on 2 liters. GENERAL: The patient is alert and oriented, weak, but still improving overall. CARDIOVASCULAR: Regular sinus rhythm. ABDOMEN: Soft, nontender. EXTREMITIES: No clubbing, cyanosis or edema. Stools have been slowing down somewhat with the oral vancomycin. She continues to make good progress overall. LABORATORY DATA: Sodium and potassium 140 and 3.9. BUN and creatinine were 20 and 1. GFR of almost 59. Blood sugars being regulated as she tapers down off her Decadron. Albumin 2.3. IMPRESSION: Pneumonia, COVID-19, severe protein malnutrition, Clostridium difficile toxin, diarrhea, Klebsiella pneumoniae urinary tract infection, type 2 diabetes, colitis, essential hypertension. PLAN: Continue present drug regimen and adjust accordingly. CARA SYED MD DR: EMI/jonah JOB#: [id number] / [id number]
[2020-03-02] MEDS ORDERED: VANC125C3 PO (06:34)
== END 2020-03-01 14:05 | disposition home or self-care (01) | DRG 871 ==
LOC: ER 23:07 → 1 SOUTH 02-25 02:12
PROVIDERS: ADMIT Family Medicine; ATTEND Family Medicine
DX: A41.89 Other specified sepsis (principal); J12.89 Other viral pneumonia; E43 Unspecified severe protein-calorie malnutrition; J96.90 Respiratory failure, unspecified, unspecified whether with hypoxia or hypercapnia; U07.1 COVID-19; A04.72 Enterocolitis due to Clostridium difficile, not specified as recurrent; N39.0 Urinary tract infection, site not specified; B96.1 Klebsiella pneumoniae [K. pneumoniae] as the cause of diseases classified elsewhere; D50.9 Iron deficiency anemia, unspecified; E11.22 Type 2 diabetes mellitus with diabetic chronic kidney disease; E11.65 Type 2 diabetes mellitus with hyperglycemia; N18.31 Chronic kidney disease, stage 3a; Z82.3 Family history of stroke; Z83.3 Family history of diabetes mellitus; Z90.710 Acquired absence of both cervix and uterus; I12.9 Hypertensive chronic kidney disease with stage 1 through stage 4 chronic kidney disease, or unspecified chronic kidney disease; E86.0 Dehydration; F32.9 Major depressive disorder, single episode, unspecified; F41.9 Anxiety disorder, unspecified; K21.9 Gastro-esophageal reflux disease without esophagitis; Z20.828 Contact with and (suspected) exposure to other viral communicable diseases; Z87.891 Personal history of nicotine dependence
CPT/HCPCS: 36415; 71275; 74022; 74177; 80048; 80053; 80076; 80307; 81001; 82150; 82550; 82803; 82947; 83540; 83550; 83690; 83735; 83880; 84443; 84484; 85025; 85379; 85610; 85730; 86140; 87086; 87493; 93005; 96361; 96374; 96375; 99291; J0456; J0696; J0780; J1100; J1200; J1650; J1815; J1956; J2270; J2405; J3475; J3490; J7050; J7120; J7613; Q0162; Q9967; U0003; J7030

== ENCOUNTER 2020-03-07 09:13 | Emergency (ER) | payer BC ==
[~2020-03-07] VITALS: Ht 170.2 cm; Wt 80.0 kg
[~2020-03-07 09:13] MED LIST changes: +ALBU8HFA2 INH; +AZIT250T6 PO; +CHOL10003 PO; +DEXA4VIA37 PO; +DICY10CA3 PO; +DILT240C33 PO; +ESZO3TAB28 PO; +FAMO20TA5 PO; +GLYB1.252 PO; +INSU100I11 SQ; +INSU100V8 SQ; +LIRA0.6P2 SQ; +LISI40TA PO; +METF10007 PO; +ONDA4TAB12 PO; +PANT40TA6 PO; +ROPI5TAB PO; +TRAZ-125 PO; +VANC125C3 PO
[2020-03-07] MEDS ORDERED: IV NORMAL SALINE 1,000ML 1,000 ML IV ONE ×2 (09:15)
--- NOTE | 2020-03-07 09:29 | PHYS DOC ---
Past History Past Medical History: Anemia, Anxiety, Diabetes, Hypertension, Renal Disease, Renal Failure, Other Additional Past Medical Histor: stage 2 renal failure, retinopathy,c-dif Past Surgical History: Hysterectomy, Tonsillectomy, Other Additional Past Surgical Histo: cyst removed hand, bone removed rt ft Smoking: Non-smoker Alcohol Use: None Drug Use: None General Adult EDM: Chief Complaint: FATIGUE HPI: HPI: 49-year-old female past medical history significant for diabetes, hypertension, hyperlipidemia, renal disease with recent admission less than 2 weeks ago for sepsis 2/2 pna, Covid (12 days ago) and C. difficile, presents to the ED with complaints of left ear pain and sore throat for the past few days. Patient was referred to the ED by her physician Dr. Dominguez who was concerned she was hypotensive. Pt reports her BP was taken once, was 90/60. Has a picc line that is not being used. Is compliant with oral vancomycin. Review of Systems: Review of Systems: Constitutional: Denies fever or chills Eyes: Denies change in visual acuity HENT: Denies nasal congestion or sore throat Respiratory: Denies cough or shortness of breath Cardiovascular: Denies chest pain or edema GI: Denies abdominal pain, nausea, vomiting, bloody stools or diarrhea : Denies dysuria Musculoskeletal: Denies back pain or joint pain Integument: Denies rash Neurologic: Denies headache, focal weakness or sensory changes Endocrine: Denies polyuria or polydipsia Lymphatic: Denies swollen glands Psychiatric: Denies depression or anxiety Current Medications: Current Meds: Current Medications Medications (Trade) Dose Ordered Sig/Karley Start Time Stop Time Status Last Admin Dose Admin Sodium Chloride 1,000 ml @ 1,000 mls/hr 1X ONCE 03/07/20 09:15 03/07/20 10:14 Vancomycin HCl (Vancomycin Oral Solution) 500 mg [id number] 03/07/20 13:00 UNV Allergies: Allergies: Allergies Coded Allergies Type Severity Reaction Last Updated Verified No Known Drug Allergies 07/01/13 No Physical Exam: PE: Constitutional: Well developed, well nourished, no acute distress, non-toxic appearance. [] HENT: Normocephalic, atraumatic, bilateral external ears normal, oropharynx moist, no oral exudates, nose normal. [] Eyes: PERRLA, EOMI, conjunctiva normal, no discharge. [] Neck: Normal range of motion, no tenderness, supple, no stridor. [] Cardiovascular:Heart rate regular rhythm, no murmur [] Lungs & Thorax: Bilateral breath sounds clear to auscultation [] Abdomen: Bowel sounds normal, soft, no tenderness, no masses, no pulsatile masses. [] Skin: Warm, dry, no erythema, no rash. [] Back: No tenderness, no CVA tenderness. [] Extremities: No tenderness, no cyanosis, no clubbing, ROM intact, no edema. [] Neurologic: Alert and oriented X 3, normal motor function, normal sensory function, no focal deficits noted. [] Psychologic: Affect normal, judgement normal, mood normal. [] EKG: EKG: Sinus rhythm at 74 bpm, left axis deviation, normal intervals, T wave inversion lead III, no ST elevations or ST depressions, Q waves in 3 and aVF Radiology/Procedures: Radiology/Procedures: IMAGING REPORT Signed PATIENT: VIDAL DELGADO ACCOUNT: [id number] : 1970 LOCATION: ER AGE: 49 SEX: F EXAM STATUS: REG ER ORD. PHYSICIAN: JESSICA MCCRAY DO REASON: fever, hypotension, +covid PROCEDURE: PORTABLE CHEST 1V XR CHEST 1V INDICATION: Reason: fever, hypotension, +covid / Spl. Instructions: / History: . COMPARISON STUDY: 02/25/2020. FINDINGS: Lungs: Normal lung volume. Bilateral opacities have improved. No consolidation. The tracheobronchial tree and hilar structures are normal. Pleura: No pleural effusion or pneumothorax. Heart and Mediastinum: Cardiomegaly. The great vessels of the thorax are normal. Bones and Soft Tissues: The bones and soft tissues are within normal limits. IMPRESSION: Bilateral opacities have improved. No new consolidation. Electronically signed by: Janine Rockwell MD (03/07/2020 9:48 AM) [id number] DICTATED AND SIGNED BY: JANINE ROCKWELL MD DATE: 03/07/20 0947 CC: CARA SYED MD; JESSICA MCCRAY DO ~MTH0 0 Heart Score: Risk Factors: Risk Factors: DM, Current or recent (<one month) smoker, HTN, HLP, family history of CAD, obesity. Risk Scores: Score 0 - 3: 2.5% MACE over next 6 weeks - Discharge Home Score 4 - 6: 20.3% MACE over next 6 weeks - Admit for Clinical Observation Score 7 - 10: 72.7% MACE over next 6 weeks - Early Invasive Strategies Course & Med Decision Making: Course & Med Decision Making Pertinent Labs and Imaging studies reviewed. (See chart for details) Left otalgia with normal exam. No hypotension (on multiple checks), fever, ta chycardia or leukocytosis. No evidence of new infection/sepsis-cxr with no new consolidation. Patient very well-appearing. PICC line removed by RN. I discussed this with Dr. Dominguez who agrees with plan, no indication for antibiotics at this time given pt currently being tx'ed for cdiff. Will dc home with outpt followup. Strict ED return precautions were given for fever, syncope or low blood pressure. Encouraged urgent outpatient follow-up with PMD. Life- threatening processes were considered but are low suspicion at this time, given history and physical exam. Pt was educated on all prescription medications and adverse effects. All patient's questions were answered and pt was stable at time of discharge. Life/limb-threatening differential includes but is not limited to, auricular hematoma or perichondritis, malignant otitis externa, otitis externa or media, otomycosis, bullous myringitis, mastoiditis, hearing loss or vestibular disorder, tympanic membrane rupture, herpes zoster oticus, contact dermatitis, sepsis/shock, cholesteatoma, meningitis, brain abscess or venous/cavernous/cerebral sinus thrombosis. I spoken with the patient and her caregivers. I explained the patient's condition, diagnoses and treatment plan based on the information available to me at this time. I have answered the patient and her caregiver's questions and addressed any concerns. The patient and her caregivers have a good understanding of patient's diagnosis, condition and treatment plan as can be expected at this point. Vital signs have been stable. Patient's condition is stable and appropriate for discharge from the emergency department. Patient will pursue further outpatient evaluation with primary care physician or other designated or consulting physician as outlined in the discharge instructions. The patient and/or caregivers are agreeable to this plan of care and follow-up instructions have been explained in detail. The patient and/or caregivers have received these instructions in written form and have expressed a n understanding of the discharge instructions. The patient and/or caregivers are aware that any significant change of condition or worsening of symptoms should prompt immediate return to this or the closest emergency department or call to 91. Anne Disclaimer: Anne Disclaimer: This electronic medical record was generated, in whole or in part, using a voice recognition dictation system. Departure Departure: Impression: Primary Impression: Left ear pain Additional Impression: Encounter for removal of peripherally inserted central catheter Disposition: 01 DC HOME SELF CARE/HOMELESS Condition: STABLE Referrals: CARA SYED MD (PCP) within 7 days Patient Instructions: Otalgia Additional Instructions: EMERGENCY DEPARTMENT GENERAL DISCHARGE INSTRUCTIONS Thank you for coming to [facility] (ED) today and trusting us with you care. We trust that you had a positivie experience in our Emergency Department. If you wish to speak to the department management, you may call the director at [phone]. YOUR FOLLOW UP INSTRUCTIONS ARE FOLLOWS: 1. Do you have a private Doctor? If you do not have a private doctor, please a sk for a resource list of physicians or clinics that may be able to assist you with follow up care. 2. The Emergency Physician has interpreted your x-rays. The X-Ray specialist will also review them. If there is a change in the findings, you will be notified in 48 hours when at all possible. 3. A lab test or culture has been done, your results will be reviewed and you will be notified if you need a change in treatment. ADDITIONAL INSTRUCTIONS AND INFORMATION: 1. Your care today has been supervised by a physician who is specially trained in emergency care. Many problems require more than one evaluation for a complete diagnosis and treatment. We recommend that you schedule your follow up appointment as recommended to ensure complete treatment of you illness or injury. If you are unable to obtain follow up care and continue to have a problem, or if your condition worsens, we recommend that you return to the ED. 2. We are not able to safely determine your condition over the phone nor are we able to give sound medical advice over the phone. For these safety reasons, if you call for medical advice we will ask you to come to the ED for further evaluation. 3. If you have any questions regarding these discharge instructions please call the ED at [phone]. SAFETY INFORMATION: In the interest of safety, wellness, and injury prevention; we encourage you to wear your sealbelt, if you smoke; quite smoking, and we encourage family to use a protective helmet for bicycling and other sporting events that present an increased risk for head injury. IF YOUR SYMPTOMS WORSEN OR NEW SYMPTOMS DEVELOP, OR YOU HAVE CONCERNS ABOUT YOUR CONDITION; OR IF YOUR CONDITION WORSENS WHILE YOU ARE WAITING FOR YOUR FOLLOW UP APPOINTMENT; EITHER CONTACT YOUR PRIMARY CARE DOCTOR, THE PHYSICIAN WHOSE NAME AND NUMBER YOU WERE GIVEN, OR RETURN TO THE ED IMMEDIATELY. [facility] MEDICAL CENTERJESSICA DO Mar 07, 2020 09:29
[2020-03-07] MEDS ORDERED: PIPERACILLIN/TAZOBACTAM 4.5 GM in IV NORMAL SALINE 50ML 50 ML IV ONE (09:30)
[2020-03-07] MEDS ORDERED: AZITHROMYCIN 500 MG in IV NORMAL SALINE 250ML 250 ML IV ONE (09:30)
[2020-03-07] MEDS ORDERED: VANCOMYCIN 1.25 GM in IV NORMAL SALINE 250ML 250 ML IV SCH (09:56)
[2020-03-07] MEDS ORDERED: IV NORMAL SALINE 50ML 50 ML ONE (10:30)
[2020-03-07] MEDS ORDERED: IV NORMAL SALINE 250ML 250 ML ONE (10:30)
[2020-03-07] MEDS ORDERED: PIPERACILLIN/TAZOBACTAM 4.5 GM VIAL IV ONE (10:30)
[2020-03-07] MEDS ORDERED: AZITHROMYCIN 500 MG VIAL. IV ONE (10:30)
[2020-03-07 10:33] LABS: BACTERIA,URINE FEW /HPF (0-FEW); BILIRUBIN,URINE NEG (NEG); CLARITY,URINE CLEAR; COLOR,URINE YELLOW; GLUCOSE,URINE 100 mg/dL (NEG); NITRITE,URINE NEG (NEG); SQUAMOUS EPITHELIAL CELL,UR MOD /LPF; UROBILINOGEN,URINE 0.2 mg/dL (0.2 mg/dL)
[2020-03-07 10:36] LABS: INFLUENZA A PATIENT NEGATIVE (NEGATIVE); INFLUENZA B PATIENT NEGATIVE (NEGATIVE)
[2020-03-07 10:37] LABS: BASO % 0 % (0-3); EOS # 0.2 x10^3/uL (0.0-0.7); EOS % 2 % (0-3); HEMATOCRIT 29.6 % (36.0-47.0); HEMOGLOBIN 9.2 g/dL (12.0-15.5); LYMPH # 1.9 x10^3/uL (1.0-4.8); LYMPH % 23 % (24-48); MEAN CORPUSCULAR HEMOGLOBIN 28 pg (25-35); MEAN CORPUSCULAR HGB CONC 31 g/dL (31-37); MEAN CORPUSCULAR VOLUME 90 fL (79-100); MONO # 0.8 x10^3/uL (0.0-1.1); MONO % 10 % (0-9); NEUT # 5.5 x10^3uL (1.8-7.7); NEUT % 65 % (31-73); PLATELET COUNT 269 x10^3/uL (140-400); RED BLOOD COUNT 3.29 x10^6/uL (3.50-5.40); WHITE BLOOD COUNT 8.5 x10^3/uL (4.0-11.0)
[2020-03-07 10:43] LABS: PREG TEST PT QUAL NEGATIVE (NEG)
[2020-03-07] MEDS ORDERED: VANCOMYCIN 2 GM in IV NORMAL SALINE 500ML 500 ML IV ONE (11:00)
[2020-03-07 11:35] LABS: ALBUMIN 2.5 g/dL (3.4-5.0); ALK PHOS 92 U/L (46-116); ALT (SGPT) 33 U/L (14-59); AST (SGOT) 13 U/L (15-37); LIPASE 299 U/L (73-393); TOTAL BILIRUBIN 0.1 mg/dL (0.2-1.0); TOTAL PROTEIN 5.8 g/dL (6.4-8.2)
[2020-03-07 11:38] LABS: DIRECT BILIRUBIN < 0.1 mg/dL (0.0-0.2)
[2020-03-07 12:03] LABS: CALCIUM 8.2 mg/dL (8.5-10.1); GFR 58.9
[2020-03-07] MEDS ORDERED: VANCOMYCIN 125 MG/2.5 ML ORAL SOLUTION. PO SCH (13:00)
--- NOTE | 2020-03-07 13:33 | RAD ---
XR CHEST 1V INDICATION: Reason: fever, hypotension, +covid / Spl. Instructions: / History: . COMPARISON STUDY: 02/25/2020. FINDINGS: Lungs: Normal lung volume. Bilateral opacities have improved. No consolidation. The tracheobronchial tree and hilar structures are normal. Pleura: No pleural effusion or pneumothorax. Heart and Mediastinum: Cardiomegaly. The great vessels of the thorax are normal. Bones and Soft Tissues: The bones and soft tissues are within normal limits. IMPRESSION: Bilateral opacities have improved. No new consolidation. Electronically signed by: Sanjay Rockwell MD (03/07/2020 9:48 AM) [id number]
--- NOTE | 2020-03-07 13:33 | EKG ---
[address] [address] Test Date: 2020-03-07 Test Time: 10:01:18 Pat Name: VIDAL DELGADO Department: Room: Gender: F [employer] Trainee: : 1970 Requested By: JESSICA MCCRAY Order Number: [id number] Reading MD: Measurements Intervals [place] Rate: 74 P: 57 LA: 158 QRS: -8 QRSD: 74 T: 3 QT: 402 QTc: 447 Interpretive Statements SINUS RHYTHM LEFTWARD AXIS OTHERWISE NORMAL ECG RI6.02 No previous ECG available for comparison
[2020-03-07 13:43] VITALS: BP 181/103
== END 2020-03-07 13:52 | disposition home or self-care (01) ==
LOC: ER 09:13
DX: Z45.2 Encounter for adjustment and management of vascular access device (principal); H92.02 Otalgia, left ear; J02.9 Acute pharyngitis, unspecified; F41.9 Anxiety disorder, unspecified; I12.9 Hypertensive chronic kidney disease with stage 1 through stage 4 chronic kidney disease, or unspecified chronic kidney disease; E11.22 Type 2 diabetes mellitus with diabetic chronic kidney disease; N18.9 Chronic kidney disease, unspecified; E78.5 Hyperlipidemia, unspecified; Z86.2 Personal history of diseases of the blood and blood-forming organs and certain disorders involving the immune mechanism
CPT/HCPCS: 36415; 71045; 80048; 80076; 81001; 82550; 83605; 83690; 84484; 84703; 85025; 85610; 85730; 87040; 87804; 93005; 96361; 96365; 96366; 96367; 99285; J0456; J2543; J3370; J7030; J7040; J7050